=== PATIENT | male | born 1970 | race Caucasian/White ===

== ENCOUNTER 2019-10-07 21:22 | Emergency (ER) | payer OTHER ==
[~2019-10-07] VITALS: Ht 172.7 cm; Wt 63.5 kg
[2019-10-07] MEDS ORDERED: ACETAMINOPHEN PO (21:30)
[2019-10-07 21:46] LABS: ABSOLUTE NEUTROPHILS 6.1 thou/uL (1.4-8.2); EOSINOPHILS 1.4 % (0.0-3.0); HEMATOCRIT 50.5 % (42.0-52.0); HEMOGLOBIN 17.2 gm/dL (14.0-18.0); LYMPHOCYTES 28.7 % (24.0-44.0); MCH 31.4 pg (26.0-34.0); MCHC 34.1 g/dL (28.0-37.0); MCV 92.1 fL (80.0-100.0); MONOCYTES 7.3 % (1.0-8.0); PLATELET COUNT 365 thou/uL (150-400); POLYS 61.6 % (36.0-66.0); RBC 5.48 mil/uL (4.50-6.00); RDW 14.2 % (10.5-14.5); WBC 9.9 thou/uL (4.0-11.0)
[2019-10-07 21:56] LABS: CALCIUM 9.3 mg/dL (8.5-10.1); CREATININE 1.1 mg/dL (0.7-1.3); POTASSIUM 3.5 mmol/L (3.5-5.1)
[2019-10-07 23:11] LABS: URINE BILIRUBIN NEGATIVE (Negative); URINE BLOOD NEGATIVE (Negative); URINE CLARITY CLEAR; URINE COLOR YELLOW; URINE GLUCOSE-RANDOM* NEGATIVE (Negative); URINE KETONES NEGATIVE (Negative); URINE LEUKOCYTES-REFLEX TRACE (Negative); URINE NITRITE-REFLEX NEGATIVE (Negative); URINE PROTEIN (DIPSTICK) NEGATIVE (Negative); URINE UROBILINOGEN 0.2 E.U./dl (0.2-1.0)
[2019-10-07 23:20] LABS: AMP/METHAMP POSITIVE (Negative); BARBITURATES Negative (Negative); BENZODIAZEPINES Negative (Negative); COCAINE POSITIVE (Negative); METHADONE Negative (Negative); OPIATES POSITIVE (Negative); PCP Negative (Negative)
[2019-10-07] MEDS ORDERED: ZOFRAN ODT4 MG PO (23:27)
[2019-10-07] MEDS ORDERED: NAPROSYN500 MG PO (23:27)
[2019-10-07 23:43] VITALS: BP 128/89
== END 2019-10-07 23:45 | disposition home or self-care (01) ==
LOC: ER 21:22
PROVIDERS: Emergency Medicine
DX: G43.909 Migraine, unspecified, not intractable, without status migrainosus (principal); R53.81 Other malaise; R53.1 Weakness; R11.0 Nausea; F12.90 Cannabis use, unspecified, uncomplicated; R41.82 Altered mental status, unspecified; J44.9 Chronic obstructive pulmonary disease, unspecified; F17.210 Nicotine dependence, cigarettes, uncomplicated; Z88.2 Allergy status to sulfonamides